=== PATIENT | female | born 1950 | race Caucasian/White ===

== ENCOUNTER 2020-03-10 17:04 | Emergency (ER) | payer MEDICARE, OTHER ==
--- NOTE | 2020-03-10 18:06 | EDM.PDOC ---
ED HPI GENERAL MEDICAL PROBLEM - General Chief Complaint: Cardiovascular Problem Stated Complaint: LT KNEE INJURY, FEVER, AFIB Time Seen by Provider: 03/10/20 17:15 Source of Information: Reports: Patient History Limitations: Reports: No Limitations - History of Present Illness INITIAL COMMENTS - FREE TEXT/NARRATIVE: The patient was sent from the walk in clinic for left knee injury and possible atrial fibrillation. The patient tripped and fell on uneven pavement this morning and landed on her left knee and hands. She has edema, pain and ecchymosis to the left knee. She did not hit her head or hurt her neck. She has no chest pain, shortness of breath, cough, abdominal pain, nausea, vomiting or diarrhea. She went to the walk in clinic to get an x-ray and the did an a ssessment and they though she had an irregular heart rhythm like a-fib. She also had a low grade temp. When she got here her temp was 100. She has no symptoms. She has no history of heart problems. Onset: Sudden Duration: Hour(s): Location: Reports: Lower Extremity, Left (knee) Quality: Reports: Sharp Severity: Moderate Improves with: Reports: Immobilization Worsens with: Reports: Movement Context: Reports: Trauma Associated Symptoms: Reports: No Other Symptoms Left Knee Pain Score (Numeric/FACES): 7 - Related Data Allergies Allergy/AdvReac Type Severity Reaction Status Date / Time No Known Allergies Allergy Verified 03/10/20 17:20 Past Medical History Respiratory History: Reports: Pneumonia, Recurrent Musculoskeletal History: Reports: Fracture, Osteoarthritis, Osteoporosis Social & Family History - Tobacco Use Tobacco Use Status *Q: Never Tobacco User - Caffeine Use Caffeine Use: Reports: Coffee, Tea - Recreational Drug Use Recreational Drug Use: No ED ROS GENERAL - Review of Systems Review Of Systems: See Below Constitutional: Reports: No Symptoms HEENT: Reports: No Symptoms Respiratory: Reports: No Symptoms Cardiovascular: Reports: No Symptoms Endocrine: Reports: No Symptoms GI/Abdominal: Reports: No Symptoms : Reports: No Symptoms Musculoskeletal: Reports: Other (Left knee pain) ED EXAM, GENERAL - Physical Exam Exam: See Below Exam Limited By: No Limitations General Appearance: Alert, No Apparent Distress Ears: Normal External Exam Nose: Normal Inspection Head: Atraumatic, Normocephalic Neck: Normal Inspection Respiratory/Chest: No Respiratory Distress, Lungs Clear, Normal Breath Sounds Cardiovascular: Regular Rate, Rhythm, No Edema, No Murmur GI/Abdominal: Soft, Non-Tender, No Organomegaly, No Mass Back Exam: Normal Inspection Extremities: Normal Inspection Neurological: Alert, Oriented, No Motor/Sensory Deficits #1 Interpretation EKG Date: 03/10/20 Time: 17:25 Rhythm: NSR Rate (Beats/Min): 106 Candor: Normal P-Wave: Present QRS: Normal ST-T: Normal QT: Normal EKG Interpretation Comments: Bigeminal PVCs Course - Vital Signs Last Recorded V/S: Last Vital Signs Temp 100 F 03/10/20 17:15 Pulse 64 03/10/20 17:15 Resp 16 03/10/20 17:15 BP 140/56 L 03/10/20 17:15 Pulse Ox 94 L 03/10/20 17:15 - Orders/Labs/Meds Orders: Active Orders 24 hr Category Date Time Status Cardiac Monitoring [RC] . DIRECTED Care 03/10/20 17:35 Active EKG 12 Lead [EKG Documentation Completion] [RC] ROUTINE Care 03/10/20 17:25 Ac tive Knee Min 4V Lt [CR] Stat Exams 03/10/20 17:36 Taken CBC WITH AUTO DIFF [HEME] Stat Lab 03/10/20 17:47 Results Labs: Laboratory Tests 03/10/20 03/10/20 Range/Units 17:47 17:47 WBC 8.94 (3.98-10.04) K/mm3 RBC 4.37 (3.98-5.22) M/mm3 Hgb 12.8 (11.2-15.7) gm/dl Hct 40.0 (34.1-44.9) % MCV 91.5 (79.4-94.8) fl MCH 29.3 (25.6-32.2) pg MCHC 32.0 L (32.2-35.5) g/dl RDW Std Deviation 45.2 (36.4-46.3) fL Plt Count 228 (182-369) K/mm3 MPV 10.6 (9.4-12.3) fl Neut % (Auto) 85.8 H (34.0-71.1) % Lymph % (Auto) 8.8 L (19.3-51.7) % [place] % (Auto) 4.6 L (4.7-12.5) % Eos % (Auto) 0.6 L (0.7-5.8) Baso % (Auto) 0.0 L (0.1-1.2) % Neut # (Auto) 7.67 H (1.56-6.13) K/mm3 Lymph # (Auto) 0.79 L (1.18-3.74) K/mm3 [place] # (Auto) 0.41 H (0.24-0.36) K/mm3 Eos # (Auto) 0.05 (0.04-0.36) K/mm3 Baso # (Auto) 0.00 L (0.01-0.08) K/mm3 Sodium 140 (136-145) mEq/L Potassium 4.4 (3.5-5.1) mEq/L Chloride 104 (98-107) mEq/L Carbon Dioxide 28 (21-32) mEq/L Anion Gap 12.4 (5-15) BUN 23 H (7-18) mg/dL Creatinine 0.8 (0.55-1.02) mg/dL Est Cr Clr Drug Dosing 60.91 mL/min Estimated GFR (MDRD) > 60 (>60) mL/min BUN/Creatinine Ratio 28.8 H (14-18) Glucose 154 H (80-115) mg/dL Calcium 8.8 (8.5-10.1) mg/dL Magnesium 2.0 (1.8-2.4) mg/dl Total Bilirubin 0.5 (0.2-1.0) mg/dL AST 27 (15-37) U/L ALT 30 (14-59) U/L Alkaline Phosphatase 87 (46-116) U/L Troponin I < 0.017 (0.00-0.056) ng/mL Total Protein 7.0 (6.4-8.2) g/dl Albumin 3.6 (3.4-5.0) g/dl Globulin 3.4 gm/dL Albumin/Globulin Ratio 1.1 (1-2) - Re-Assessments/Exams Free Text/Narrative Re-Assessment/Exam: 03/10/20 18:06 I ordered an EKG, labs and a x-ray of her left knee. Her EKG shows a NSR with bigeminal PVCs. There is nothing acute seen. 03/10/20 18:50 The x-ray of her knee looks good. Her CBC and CMP look good. Her troponin is negative. I will get her crutches and an joe wrap. Departure - Departure Time of Disposition: 18:55 Disposition: Home, Self-Care 01 Condition: Good Clinical Impression: PVC (premature ventricular contraction) Fall Qualifiers: Encounter type: initial encounter Qualified Code(s): W19.XXXA - Unspecified fall, initial encounter Contusion of left knee Qualifiers: Encounter type: initial encounter Qualified Code(s): S80.02XA - Contusion of left knee, initial encounter Referrals: Shanice Landeros, [employer] [Primary Care Provider] - Forms: ED Department Discharge, ED Return to Work/School Form Additional Instructions: Ice your knee for 15 minutes 3 times per day for 2 days. Joe wrap it and use your crutches. Take tylenol or motrin for pain. Please return if you are worse. Follow up with Shanice Landeros within a week. Sepsis Event Note (ED) - Evaluation Sepsis Screening Result: No Definite Risk - Focused Exam Vital Signs: Vital Signs Temp Pulse Resp BP Pulse Ox 03/10/20 17:15 100 F 64 16 140/56 L 94 L - My Orders Last 24 Hours: My Active Orders 03/10/20 17:25 EKG 12 Lead [EKG Documentation Completion] [RC] ROUTINE 03/10/20 17:35 Cardiac Monitoring [RC] . DIRECTED 03/10/20 17:36 Knee Min 4V Lt [CR] Stat 03/10/20 17:47 CBC WITH AUTO DIFF [HEME] Stat - Assessment/Plan Last 24 Hours: My Active Orders 03/10/20 17:25 EKG 12 Lead [EKG Documentation Completion] [RC] ROUTINE 03/10/20 17:35 Cardiac Monitoring [RC] . DIRECTED 03/10/20 17:36 Knee Min 4V Lt [CR] Stat 03/10/20 17:47 CBC WITH AUTO DIFF [HEME] Stat
--- NOTE | 2020-03-11 08:52 | CR ---
PROCEDURE INFORMATION: Exam: XR Left Knee Exam date and time: 03/10/2020 6:06 PM Age: 69 years old Clinical indication: Pain; Knee; Left; Patient HX: Fell at 8am this morning TECHNIQUE: Imaging protocol: XR Left knee. Views: 4 or more views. COMPARISON: No relevant prior studies available. FINDINGS: Bones/joints: Normal. Soft tissues: Normal. IMPRESSION: No acute findings. Thank you for allowing us to participate in the care of your patient. Dictated and Authenticated by: Jair Humphrey MD 03/10/2020 7:22 PM Central Time ([place] & [place]) [place]
== END 2020-03-10 19:25 | disposition home or self-care (01) ==
LOC: JD.ED 17:04
DX: S80.02XA Contusion of left knee, initial encounter (principal); I49.3 Ventricular premature depolarization; W01.0XXA Fall on same level from slipping, tripping and stumbling without subsequent striking against object, initial encounter
CPT/HCPCS: 36415; 73564-26-LT; 73564-LT; 80053; 83735; 84484; 85025; 93005; 93010; 99284; 99285-25

== ENCOUNTER 2024-09-25 08:29 | Emergency (ER) | payer MEDICARE, OTHER ==
[2024-09-25] MEDS: Ketorolac 60 MG/2 ML SDV IM ONE (09:06)
[2024-09-25] MEDS: Acetaminophen/HYDROcodone 325-10 MG Tab PO ONE (09:07)
[2024-09-25] MEDS: Acetaminophen 325 MG Tab PO ONE (09:07)
[2024-09-25] MEDS ORDERED: Naloxone 0.4 MG/ML SDV IVPUSH PRN (09:50)
[2024-09-25] MEDS: fentaNYL 100 MCG/2 ML SDV IM ONE (10:43)
== END 2024-09-25 11:00 | disposition home or self-care (01) ==
LOC: JD.ED 08:29
DX: S42.322A Displaced transverse fracture of shaft of humerus, left arm, initial encounter for closed fracture (principal); S63.502A Unspecified sprain of left wrist, initial encounter; Z79.899 Other long term (current) drug therapy; W01.0XXA Fall on same level from slipping, tripping and stumbling without subsequent striking against object, initial encounter
CPT/HCPCS: 73030; 73110; 96372; 99283; A9270; J1885; J3010